=== PATIENT | male | born 1950 | race Caucasian/White ===

== ENCOUNTER → 2017-06-10 | Outpatient (CLI) | payer MEDICARE, OTHER ==
[~2017-06-10] MED LIST: ATOR40TA24 PO; CADUET; CALC-515 PO; DOXA4TAB PO; DOXA4TAB57 PO; HYOS0.1224 PO; HYZAAR; LOSA-38 PO; LOSA-44 PO; NEBI5TAB PO; OXYGENHOME INH; SULF-198 PO
--- NOTE | 2017-06-10 09:45 | RADIOLOGY IMAGING REPORT ---
FAC[place] [facility] [place] NAME: Moises Laws : 1950 MR: [id number] V: [id number] EXAM DATE: ORDERING PHYSICIAN: OSMAR PETERS TECHNOLOGIST: Location: [facility] [place] Patient: Moises Laws : 1950 Visit/Account:[id number] Date of Sevice: 06/10/2017 LUMBAR SPINE 2 OR 3 VIEW COMPARISON: None. HISTORY: Fall with low back pain and right-sided sciatica TECHNIQUE: Lumbar spine radiographs (3 views) FINDINGS: ALIGNMENT: Straightening of the normal lordosis without subluxation. VERTEBRAL BODIES: Intact vertebral body heights without fracture or osseous lesion. Advanced bilat eral facet hypertrophy L5-S1. Mild bilateral facet E L4-5. There are 5 lumbar vertebral bodies. Moder ate multilevel endplate spurring, with mild endplate spurring posteriorly at L5-S1. DISC SPACES: Mild L3-4, moderate L4-5 and advanced L5-S1 disc height loss. SACROILIAC JOINTS: Unremarkable. OTHER: Moderate aortoiliac calcifications. IMPRESSION: 1. Lumbar spine straightening but no acute fracture or subluxation. 2. Moderate mid and lower lumbar spine degenerative disc disease and facet hypertrophy. Report Dictated By: Moises Smith at 06/10/2017 9:40 AM Report E-Signed By: Moises Smith at 06/10/2017 9:42 AM WSN:[id number]
== END ==
LOC: RAD 08:41
PROVIDERS: ATTEND Physician Assistant Medical
DX: M51.36 Other intervertebral disc degeneration, lumbar region (principal)
CPT/HCPCS: 72100